=== PATIENT | female | born 1985 | race Caucasian/White ===

== ENCOUNTER 2022-09-12 11:19 | Day surgery (SDC) | payer BC, MEDICAID, SELFPAY ==
[2022-09-12 11:53] VITALS: BP 134/84; PULSE 103; RESP 18; TEMP 36.8; O2SAT 98; BMI 54.6
[2022-09-12] MEDS: Lactated Ringers 1,000 ML 15 ML IV (11:57)
[2022-09-12 12:01] LABS: Internal QC Validated? YES +Cl - CLEAR BKGD; Pregnancy, Urine Negative Negative
--- NOTE | 2022-09-12 12:06 | RAD_ITS ---
PROCEDURE: Caudal block. DATE OF EXAMINATION: 09/12/2022. INDICATION: Female, 37 years old. Low back pain. FLUOROSCOPY TIME (if supplied): (22 sec) minutes/seconds. 2. RAD/Fluor Guidance for Spine Inj IMPRESSION: Intraoperative imaging provided for caudal block. Electronically Signed: Juan Corrales MD at 15:08 EST ,
[2022-09-12] MEDS: Lidocaine 1% (5 ml sdv) 5 ML Vial (12:13)
[2022-09-12] MEDS: MethylPREDNISolone Acetate 80 MG/ML Vial (12:13)
[2022-09-12] MEDS: 0.9% Normal Saline (Pres. free 10 ML Vial (12:14)
[2022-09-12 12:20] VITALS: BP 127/77; BP 134/84; PULSE 94; RESP 18; TEMP 37.1; O2SAT 98
[2022-09-12 12:25] VITALS: BP 124/94; BP 134/84; PULSE 94; RESP 16; O2SAT 99
[2022-09-12 12:30] VITALS: BP 134/84; BP 134/96; PULSE 103; RESP 16; O2SAT 95
[2022-09-12 12:35] VITALS: BP 134/84; BP 138/99; PULSE 97; RESP 16; O2SAT 97
--- NOTE | 2022-09-12 12:42 | OP.PCM_ITS ---
Report of Operation Date of Procedure: 09/12/22 Pre-Operative Diagnosis: Lumbosacral radiculopathy, lumbosacral degenerative di sc disease, lumbosacral spinal stenosis Post-Operative Diagnosis: Lumbosacral radiculopathy, lumbosacral degenerative disc disease, lumbosacral spinal stenosis Surgery/Procedure Performed:: Caudal epidural steroid injection under fluoroscopic guidance Type of Anesthesia: MAC Estimated Blood Loss (mL): Minimal Description of Procedure: DESCRIPTION OF PROCEDURE: History and physical of today was reviewed. Risks and benefits of the procedure were explained. The patient understood and agreed to proceed. Informed consent was obtained. IV inserted per routine protocol. The patient was taken to the operating room and placed in the prone position with a pillow positioned underneath the abdomen. The lower back and tailbone area was prepped and draped in a sterile fashion using iodine x3. Under fluoroscopy guidance on a lateral view, the caudal space was identified. The skin and subcutaneous tissue was anesthetized with approximately 3 mL of 1% lidocaine using a 25-gauge regular needle. Under direct visualization with fluoroscopy, using a 22-gauge 3-1/2-inch spinal needle, the needle was advanced via the skin through the sacral hiatus. The tip of the needle was passed through the sacrococcygeal ligament and advanced to approximately S4 area. After negative aspiration of blood or CSF, a total of 3 mL of contrast was injected to confirm correct placement of the needle as well as cephalad spread. The spread was followed to approximately L5 area. After confirmation on AP as well as lateral view and repeated negative aspiration, a total of 15 mL of preservative-free 0.125% Marcaine with 80 mg of Depo-Medrol was injected easily. The needle was then removed intact. The patient experienced no sign or symptoms of intrathecal or intravascular injection. The patient experienced no paresthesia. The procedure was completed without any apparent difficulty or any complications. The patient appeared to tolerate it well. ASSESSMENT AND PLAN: This is a 37-year-old female with lumbosacral radiculopathy, lumbosacral degenerative disc disease, lumbosacral spinal stenosis status post caudal epidural steroid injection, patient will continue her current medications, patient will follow in approximately 2 weeks for reevaluation. Complications None
[2022-09-12 12:45] VITALS: BP 134/84; BP 138/95; PULSE 92; RESP 16; TEMP 36.8; O2SAT 100
== END 2022-09-12 13:11 | disposition home or self-care (01) ==
LOC: SDC 11:20 → AC 11:34
PROVIDERS: Anesthesiology; PCP Nurse Practitioner Family; Referring Provider Anesthesiology Pain Medicine; Visit Provider Anesthesiology Pain Medicine
PROC: 3E0S3BZ Introduction of Anesthetic Agent into Epidural Space, Percutaneous Approach (ICD-10-PCS; CPT 62282; principal; 2022-09-12 12:25)
DX: M48.07 Spinal stenosis, lumbosacral region (principal); M46.96 Unspecified inflammatory spondylopathy, lumbar region; E78.00 Pure hypercholesterolemia, unspecified; I10 Essential (primary) hypertension; F17.200 Nicotine dependence, unspecified, uncomplicated; M51.37 Other intervertebral disc degeneration, lumbosacral region; M47.817 Spondylosis without myelopathy or radiculopathy, lumbosacral region; M54.17 Radiculopathy, lumbosacral region; M96.1 Postlaminectomy syndrome, not elsewhere classified; Z79.899 Other long term (current) drug therapy
CPT/HCPCS: 62323; 64483; 77003; 81025; J7120; J3490

== ENCOUNTER 2022-11-14 11:15 | Day surgery (SDC) | payer OTHER, MEDICAID, SELFPAY ==
[2022-11-14 11:41] LABS: Internal QC Validated? YES +Cl - CLEAR BKGD; Pregnancy, Urine Negative Negative
[2022-11-14 11:58] VITALS: BP 143/99; PULSE 102; RESP 18; TEMP 36.8; O2SAT 94; BMI 53.8
--- NOTE | 2022-11-14 12:00 | RAD_ITS ---
STUDY: X-RAY - LUMBAR SPINE REASON FOR EXAM: Female, 37 years old. Intraprocedural documentation images of nerve blocks. TECHNIQUE: 6 intraprocedural digital documentation view(s) of the lumbar spine were obtained. COMPARISON: None FINDINGS: 6 intraprocedural digital documentation views show needles projected on both sides of the L4 and L5 vertebral bodies. RAD/L/S Spine Min 4 Views IMPRESSION: Intraprocedural digital documentation views. Electronically Signed: Neal Pritchard, at 14:13 EST ,
[2022-11-14] MEDS: Lactated Ringers 1,000 ML 15 ML IV (12:03)
[2022-11-14] MEDS: MethylPREDNISolone Acetate 80 MG/ML Vial (13:00)
[2022-11-14] MEDS: Lidocaine 1% (30 ml sdv) 30 ML Vial (13:00)
--- NOTE | 2022-11-14 13:15 | OP.PCM_ITS ---
Report of Operation Date of Procedure: 11/14/22 Pre-Operative Diagnosis: Lumbosacral spondylosis, lumbosacral degenerative dise ase, lumbar facet arthropathy Post-Operative Diagnosis: Lumbosacral spondylosis, lumbosacral degenerative disease, lumbar facet arthropathy Description of Surgical Findings:: PROCEDURE PERFORMED: Bilateral lumbar medial branch block at L4, L5, and S1. ANESTHESIA: MAC. BLOOD LOSS: Minimal. COMPLICATIONS: None. DESCRIPTION OF PROCEDURE: History and physical of today was reviewed. Risks and benefits of the procedure were explained. The patient understood and agreed to proceed. Informed consent was obtained. IV inserted per routine protocol. The patient was taken to the operating room and placed in the prone position with a pillow positioned underneath the abdomen. The lower back area was prepped and draped in a sterile fashion using iodine x3. Under fluoroscopy guidance on AP view, the L4 through S1 vertebral bodies were visualized. The skin and subcutaneous tissue was anesthetized with approximately 5 mL of 1% lidocaine using a 25-gauge regular needle. Under direct visualization with fluoroscopy, at approximately 25-degree angle, starting on the left L4, ending on the right L4, passing through the L5 and S1 bilaterally, using a 22-gauge 3-1/2-inch spinal needle, the needle was advanced via the skin. The tip of the needle was maneuvered and directed towards the superior medial gutter of the transverse process at the vicinity of the medial branch. Once tip of the needle was in contact with the bone, the needle was pulled approximately 2 mm off the bone. After negative aspiration for blood or CSF and confirmation on AP, oblique as well as lateral view, a total of 12 mL of preservative-free 0.25% Marcaine with 80 mg of Depo-Medrol was injected in divided doses between those six levels. The needles were then removed intact. The patient experienced no sign or symptoms of intrathecal or intravascular injection. The patient experienced no paresthesia. The procedure was completed without any apparent difficulty or any complications. The patient appeared to tolerate it well. ASSESSMENT AND PLAN: \ This is a 37-year-old female with lumbosacral spondylosis, lumbosacral degenerative disc disease, lumbar facet arthropathy status post bilateral lumbar medial branch block at L4-S1, patient will continue her current medications, patient will follow approximately 1 week for reevaluation.
[2022-11-14 13:20] VITALS: BP 143/99; BP 88/66; PULSE 96; RESP 18; TEMP 36.2; O2SAT 100
[2022-11-14 13:26] VITALS: BP 130/88; BP 143/99; PULSE 93; RESP 18; O2SAT 95
[2022-11-14 13:30] VITALS: BP 133/86; BP 143/99; PULSE 93; RESP 18; O2SAT 100
[2022-11-14 13:32] VITALS: BP 141/82; BP 143/99; PULSE 91; RESP 16; TEMP 36.7; O2SAT 100
[2022-11-14 13:51] VITALS: BP 143/99
== END 2022-11-14 13:57 | disposition home or self-care (01) ==
LOC: SDC 11:17 → AC 11:25
PROVIDERS: Anesthesiology; PCP Nurse Practitioner Family; Visit Provider Anesthesiology Pain Medicine
PROC: 3E0S3BZ Introduction of Anesthetic Agent into Epidural Space, Percutaneous Approach (ICD-10-PCS; CPT 62322; principal; 2022-11-14 12:55)
DX: M47.817 Spondylosis without myelopathy or radiculopathy, lumbosacral region (principal); M51.37 Other intervertebral disc degeneration, lumbosacral region; M47.816 Spondylosis without myelopathy or radiculopathy, lumbar region; M48.07 Spinal stenosis, lumbosacral region; M96.1 Postlaminectomy syndrome, not elsewhere classified; I10 Essential (primary) hypertension; E78.00 Pure hypercholesterolemia, unspecified; K21.9 Gastro-esophageal reflux disease without esophagitis; G47.33 Obstructive sleep apnea (adult) (pediatric); Z79.899 Other long term (current) drug therapy; Z87.891 Personal history of nicotine dependence
CPT/HCPCS: 64493; 64494; 01992; 64483; 72110; 81025; J7120

== ENCOUNTER 2022-12-26 08:48 | Day surgery (SDC) | payer OTHER, MEDICAID, SELFPAY ==
[2022-12-26] VITALS (7 sets, daily range): BP systolic 138–148; BP diastolic 78–96; PULSE 78–98; RESP 16–18; TEMP 36.5–36.7; O2SAT 97–100; BMI 53.8
[2022-12-26 09:16] LABS: Internal QC Validated? YES +Cl - CLEAR BKGD; Pregnancy, Urine Negative Negative
--- NOTE | 2022-12-26 09:30 | RAD_ITS ---
PROCEDURE: Right L4-S1 medial branch nerve block. DATE OF EXAMINATION: December 26, 2022. INDICATION: Female, 37 years old. Low back pain. FLUOROSCOPY TIME (if supplied): (13 seconds) minutes/seconds. 5 images were submitted. RADIATION DOSAGE (If Supplied By Facility): ( 7.04 ) mGycm RAD/L/S Spine Min 4 Views IMPRESSION: Intraoperative imaging provided for right L4-S1 medial branch nerve block. Electronically Signed: Juan Corrales MD at 13:19 EDT ,
[2022-12-26] MEDS: Lactated Ringers 1,000 ML 15 ML IV (09:39)
[2022-12-26] MEDS: Lidocaine 1% (5 ml sdv) 5 ML Vial (10:14)
[2022-12-26] MEDS: MethylPREDNISolone Acetate 80 MG/ML Vial (10:14)
[2022-12-26] MEDS: Bupivacaine 0.25% 30 ML Vial (10:14)
--- NOTE | 2022-12-26 10:17 | PCM.OPRPT ---
Report of Operation Date of Procedure: 12/26/22 Description of Surgical Findings:: PREOPERATIVE DIAGNOSIS: Lumbosacral spondylosis, lumbosacral degenerative disc disease, lumbar facet arthropathy POSTOPERATIVE DIAGNOSIS: Lumbosacral spondylosis, lumbosacral degenerative disc disease, lumbar facet arthropathy PROCEDURE PERFORMED: Right-sided lumbar medial branch block at L4, L5, and S1. ANESTHESIA: MAC. BLOOD LOSS: Minimal. COMPLICATIONS: None. DESCRIPTION OF PROCEDURE: History and physical of today was reviewed. Risks and benefits of the procedure were explained. The patient understood and agreed to proceed. Informed consent was obtained. IV inserted per routine protocol. The patient was taken to the operating room and placed in the prone position with a pillow positioned underneath the abdomen. The right side of her lower back was prepped and draped in a sterile fashion using iodine x3. Under fluoroscopy on oblique view, the L3 through S1 vertebral bodies were visualized. The skin and subcutaneous tissue was anesthetized with approximately 5 mL of 1% lidocaine using a 25-gauge regular needle. Under direct visualization with fluoroscopy, at approximately 25-degree angle starting on the right L4, ending on the right S1, passing through the L4 and L5, using a 22-gauge 3-1/2-inch spinal needle, the needle was advanced via the skin. The tip of the needle was maneuvered and directed towards the superior medial gutter of the transverse process at the vicinity of the medial branch. Once tip of the needle was in contact with the bone, the needle was pulled approximately 2 mm off the bone. After negative aspiration of blood or CSF and confirmation on AP as well as oblique view, a total of 8 mL of preservative-free 0.25% Marcaine was injected in divided doses between those four levels. The needles were then removed intact. The patient experienced no sign or symptoms of intrathecal or intravascular injection. The patient experienced no paresthesia. The procedure was completed without any apparent difficulty or any complications. The patient appeared to tolerate it well. ASSESSMENT AND PLAN: This is a 37-year-old female with lumbosacral spondylosis, lumbosacral degenerative disc disease, lumbar facet arthropathy status post right-sided lumbar medial branch block at L4 4 through S1, patient will continue current medications, patient will follow approximately 1 to 2 weeks for reevaluation.
== END 2022-12-26 11:03 | disposition home or self-care (01) ==
LOC: SDC 08:49 → AC 08:52
PROVIDERS: Anesthesiology; PCP Nurse Practitioner Family; Referring Provider Anesthesiology Pain Medicine; Visit Provider Anesthesiology Pain Medicine
PROC: 3E0S3BZ Introduction of Anesthetic Agent into Epidural Space, Percutaneous Approach (ICD-10-PCS; CPT 62322; principal; 2022-12-26 10:25)
DX: M47.817 Spondylosis without myelopathy or radiculopathy, lumbosacral region (principal); M47.816 Spondylosis without myelopathy or radiculopathy, lumbar region; M51.37 Other intervertebral disc degeneration, lumbosacral region; I10 Essential (primary) hypertension; E78.00 Pure hypercholesterolemia, unspecified; G47.33 Obstructive sleep apnea (adult) (pediatric); F17.200 Nicotine dependence, unspecified, uncomplicated; Z79.899 Other long term (current) drug therapy
CPT/HCPCS: 64493; 64494; 64483; 64490; 72110; 81025; J7120

== ENCOUNTER 2023-03-13 06:18 | Day surgery (SDC) | payer OTHER, MEDICAID, SELFPAY ==
[2023-03-13] VITALS (7 sets, daily range): BP systolic 120–152; BP diastolic 74–98; PULSE 89–97; RESP 16–18; TEMP 36.2–36.7; O2SAT 98–100; BMI 56.3
[2023-03-13] MEDS: Lactated Ringers 1,000 ML 15 ML IV (06:55)
[2023-03-13 06:58] LABS: Internal QC Validated? YES +Cl - CLEAR BKGD; Pregnancy, Urine Negative Negative
--- NOTE | 2023-03-13 07:53 | RAD_ITS ---
PROCEDURE: Right L4-S1 radiofrequency ablation. DATE OF EXAMINATION: March 13, 2023. INDICATION: Female, 37 years old. Low back pain. FLUOROSCOPY TIME (if supplied): (28 seconds) minutes/seconds. 8 images. 17.08 mGy RAD/Lumbar Spine 2 or 3 Views IMPRESSION: Intraoperative imaging provided for right L4-S1 radiofrequency ablation. Electronically Signed: Juan Corrales MD at 14:32 EDT ,
[2023-03-13] MEDS: Lidocaine 1% (30 ml sdv) 30 ML Vial (08:01)
[2023-03-13] MEDS: MethylPREDNISolone Acetate 40 MG/ML Vial IM (08:02)
--- NOTE | 2023-03-13 08:17 | PCM.OPRPT ---
Report of Operation Date of Procedure: 03/13/23 Pre-Operative Diagnosis: Lumbosacral spondylosis, lumbosacral degenerative disc disease, lumbar facet arthropathy Post-Operative Diagnosis: Lumbosacral spondylosis, lumbosacral degenerative disc disease, lumbar facet arthropathy Surgery/Procedure Performed:: Right-sided lumbar radiofrequency ablation of the medial branch L4, L5, S1 Type of Anesthesia: MAC Estimated Blood Loss (mL): Minimal Description of Procedure: History and physical today was reviewed. Risks and benefits of procedure explained. The patient understood, agreed to the procedure and informed consent was obtained. IV inserted per routine protocol. The patient was taken to the operating room, placed in the prone position with a pillow positioned underneath the abdomen. The right side of the lower back was prepped and draped in a sterile fashion using iodine x 3. Under fluoroscopy guidance, on an oblique view, the L3 through S1 vertebral bodies were visualized. The skin and subcutaneous tissue was anesthetized with approximately 10 mL of 1% lidocaine using a 25-gauge regular needle. Under direct visualization with fluoroscopy at approximately 25-degree angle, starting on the right L3, ending on the right S1 passing through the L4-L5 using a 20-gauge 15 cm with a 10 mm curved active tip radiofrequency ablation needle the needle passed through the skin. The tip of the needle was maneuvered and directed towards the superior and medial gutter of the transverse process at the vicinity of the medial branch. Once the tip of the needle was in contact with the bone, the needle pulled approximately 2 mm up the bone. The stylet of each needle was then removed. After negative aspiration of blood with CSF and confirmation of AP as well as oblique view, radiofrequency ablation probe was then inserted at each level. Impedance was then recorded at L3 to be 223, at L4 226, at L5 229, at S1 291 ohm. Motor-evoked potential was then initiated to 1.5 volt without any motor response at each corresponding level. The probe was then removed intact and a total of 6 mL preservative-free 1% lidocaine was injected in divided doses between those 4 levels after negative aspiration of blood with CSF. The radiofrequency ablation probe was then reinserted after confirmation of AP, oblique as well as lateral view. Radiofrequency ablation was then initiated to 80 degrees Celsius for 90 seconds at each level. Once concluded, the probe was then removed intact and a total of 6 mL of preservative-free 0.25% Marcaine with 40 mg Depo-Medrol was injected in divided doses between those 4 levels. The needles were then removed intact. The patient experienced no signs or symptoms of intrathecal, intravascular injection. The patient experienced no paraesthesia. The procedure was completed without any apparent difficulty, any complication. The patient appeared to tolerate well. Sensory as well as motor exam was unchanged from prior to procedure. ASSESSMENT AND PLAN: This is a 37-year-old female with lumbosacral spondylosis, lumbosacral degenerative disc disease, lumbar facet arthropathy, status post right-sided radiofrequency ablation of the medial branch L4 through S1. The patient will continue her current medications. The patient will follow up in approximately 2 weeks for reevaluation. Complications None
== END 2023-03-13 08:47 | disposition home or self-care (01) ==
LOC: SDC 06:19 → AC 06:20
PROVIDERS: Anesthesiology; PCP Nurse Practitioner Family; Referring Provider Anesthesiology Pain Medicine; Visit Provider Anesthesiology Pain Medicine
PROC: (CPT 64635; principal; 2023-03-13 07:55)
DX: M51.37 Other intervertebral disc degeneration, lumbosacral region (principal); G40.909 Epilepsy, unspecified, not intractable, without status epilepticus; M47.27 Other spondylosis with radiculopathy, lumbosacral region; M48.07 Spinal stenosis, lumbosacral region; I10 Essential (primary) hypertension; M96.1 Postlaminectomy syndrome, not elsewhere classified; G47.33 Obstructive sleep apnea (adult) (pediatric); E78.5 Hyperlipidemia, unspecified; Z79.899 Other long term (current) drug therapy; Z87.891 Personal history of nicotine dependence
CPT/HCPCS: 64635; 64636; 01992; 72100; 76000; 81025; J7120

== ENCOUNTER → 2023-09-13 | Outpatient (CLI) | payer OTHER, MEDICAID, SELFPAY ==
[2023-09-13 11:15] LABS: Amphetamine Urine VISTA NEGATIVE (<1000 ng/mL); Barbiturate Urine VISTA NEGATIVE (< 200 ng/mL); Benzodiazepine Urine VISTA NEGATIVE (< 200 ng/mL); Cocaine Urine VISTA NEGATIVE (< 300 ng/mL); Ecstacy Urine VISTA NEGATIVE (< 500 ng/mL); Methadone Urine VISTA NEGATIVE (< 300 ng/mL); PCP Urine VISTA NEGATIVE (< 25 ng/mL); THC Urine VISTA NEGATIVE (< 50 ng/mL); Vista UDS pH Range 5
== END | disposition home or self-care (01) ==
PROVIDERS: Referring Provider Anesthesiology Pain Medicine; Visit Provider Anesthesiology Pain Medicine
DX: F11.20 Opioid dependence, uncomplicated (principal)
CPT/HCPCS: 80307

== ENCOUNTER → 2023-10-11 | Outpatient (CLI) | payer OTHER, MEDICAID, SELFPAY ==
[2023-10-11 11:17] LABS: Amphetamine Urine VISTA NEGATIVE (<1000 ng/mL); Barbiturate Urine VISTA NEGATIVE (< 200 ng/mL); Benzodiazepine Urine VISTA NEGATIVE (< 200 ng/mL); Cocaine Urine VISTA NEGATIVE (< 300 ng/mL); Ecstacy Urine VISTA NEGATIVE (< 500 ng/mL); Methadone Urine VISTA NEGATIVE (< 300 ng/mL); PCP Urine VISTA NEGATIVE (< 25 ng/mL); THC Urine VISTA POSITIVE (< 50 ng/mL); Vista UDS pH Range 6
== END | disposition home or self-care (01) ==
LOC: LAB 10:11
PROVIDERS: Referring Provider Anesthesiology Pain Medicine; Visit Provider Anesthesiology Pain Medicine
DX: F11.20 Opioid dependence, uncomplicated (principal)
CPT/HCPCS: 80307